=== PATIENT | male | born 2000 | race African-American/Black ===

== ENCOUNTER 2024-05-04 18:34 | Emergency (ER) | payer OTHER ==
[2024-05-04 18:40] VITALS: BP 166/78; PULSE 68; RESP 18; TEMP 98.6; BMI 25.0
[2024-05-04] MEDS ORDERED: LIDOCAINE 4% PATCH TP ONE (20:39)
[2024-05-04] MEDS ORDERED: KETOROLAC TROMETHAMINE 15 MG/ML VIAL ONE (20:39)
[2024-05-04] MEDS ORDERED: METHOCARBAMOL 500 MG TABLET ONE (20:39)
[2024-05-04] MEDS: LIDOCAINE 5% TOPICAL PATCH TP ONE (20:49)
[2024-05-04] MEDS: KETOROLAC TROMETHAMINE 30 MG/1 ML VIAL IM ONE (20:49)
[2024-05-04] MEDS: METHOCARBAMOL 500 MG TABLET PO ONE (20:49)
[2024-05-04] MEDS ORDERED: LIDOCAINE PATCH REMOVAL MC SCH (22:00)
== END 2024-05-04 21:20 | disposition home or self-care (01) ==
LOC: JERFT 18:34 → JER 18:34 → JERFT 21:20
PROC: 3E0133Z Introduction of Anti-inflammatory into Subcutaneous Tissue, Percutaneous Approach (ICD-10-PCS; principal; 2024-05-04)
DX: M79.652 Pain in left thigh (principal)
CPT/HCPCS: 99284-25